=== PATIENT | male | born 1945 | race Caucasian/White ===

== ENCOUNTER → 2016-09-01 | Outpatient (CLI) | payer MEDICARE, OTHER ==
--- NOTE | 2016-09-01 15:39 | MRI ---
EXAM DESCRIPTION: Brain w/o Contrast CLINICAL HISTORY: SYNCOPE COMPARISON: None available TECHNIQUE: Non contrast MRI of the brain is performed according to our usual protocol including multiplanar multi sequence technique. FINDINGS: No hemorrhage, mass effect, diffusion restriction, or acute infarction is present. Mild generalized volume loss is present. Mild T2/FLAIR hyperintensities in the supratentorial white matter. No abnormal extra-axial fluid collections are present. Normal flow voids are present. The calvarium is intact. Mild mucosal thickening in both maxillary sinuses with a 1.5 cm left maxillary mucous retention cyst or polyp. Small left mastoid effusion. IMPRESSION: 1. No acute intracranial abnormality. 2. Mild chronic microangiopathy. Electronically signed by: Jorge Hernández MD 09/01/2016 3:37 PM CDT
== END | disposition home or self-care (01) ==
LOC: MRI 10:21
PROVIDERS: ATTEND Family Medicine
DX: R55 Syncope and collapse (principal)

== ENCOUNTER → 2016-09-08 | Outpatient (CLI) | payer MEDICARE, OTHER | END | disposition home or self-care (01) | LOC: GMAM 11:55 | PROVIDERS: ATTEND Family Medicine | DX: D64.9 Anemia, unspecified (principal); Z12.5 Encounter for screening for malignant neoplasm of prostate; R53.83 Other fatigue; E55.9 Vitamin D deficiency, unspecified | CPT/HCPCS: 82306; 82728; 83540; 83550; 84403; 84439; 84443; 84550; 85045; 85651; 86038; 86060; 86140; 86200; 86431; G0103 ==

== ENCOUNTER → 2016-12-08 | Outpatient (CLI) | payer MEDICARE, OTHER | LOC: GMAM 16:58 | PROVIDERS: ATTEND Family Medicine | DX: D50.8 Other iron deficiency anemias (principal) ==

== ENCOUNTER → 2017-01-05 | Outpatient (CLI) | payer MEDICARE, OTHER | END | disposition home or self-care (01) | LOC: GMAM 14:57 | PROVIDERS: ATTEND Family Medicine | DX: E29.9 Testicular dysfunction, unspecified (principal) ==

== ENCOUNTER → 2017-03-30 | Outpatient (CLI) | payer MEDICARE, OTHER | END | disposition home or self-care (01) | LOC: GMAM 15:02 | PROVIDERS: ATTEND Family Medicine | DX: E53.8 Deficiency of other specified B group vitamins (principal); D51.3 Other dietary vitamin B12 deficiency anemia; D52.9 Folate deficiency anemia, unspecified; D64.9 Anemia, unspecified; N39.0 Urinary tract infection, site not specified; E29.9 Testicular dysfunction, unspecified; I10 Essential (primary) hypertension; R31.21 Asymptomatic microscopic hematuria ==

== ENCOUNTER → 2017-07-03 | Outpatient (CLI) | payer MEDICARE, OTHER | LOC: GMAM 18:45 | PROVIDERS: ATTEND Family Medicine | DX: D64.9 Anemia, unspecified (principal) ==

== ENCOUNTER → 2017-08-16 | Outpatient (CLI) | payer MEDICARE, OTHER | LOC: GMAH 16:39 | PROVIDERS: ATTEND Nurse Practitioner Family | DX: N30.00 Acute cystitis without hematuria (principal) ==

== ENCOUNTER → 2017-09-20 | Outpatient (CLI) | payer MEDICARE, OTHER | LOC: GMAM 10:52 | PROVIDERS: ATTEND Family Medicine | DX: D51.3 Other dietary vitamin B12 deficiency anemia (principal); E55.9 Vitamin D deficiency, unspecified; E29.9 Testicular dysfunction, unspecified; I10 Essential (primary) hypertension; Z12.5 Encounter for screening for malignant neoplasm of prostate | CPT/HCPCS: 82306; 82607; 84403; G0103 ==

== ENCOUNTER → 2017-09-29 | Outpatient (CLI) | payer MEDICARE, OTHER ==
--- NOTE | 2017-09-29 15:17 | MRI ---
MRI right shoulder without contrast INDICATION: Shoulder pain with movement no specific injury unspecified date of onset TECHNIQUE: Noncontrast MR imaging right shoulder standard protocol FINDINGS: Mild subacromial and subdeltoid bursitis. Mild AC joint osteoarthrosis. There is a focal small interstitial and possibly bursal surface partial tear of the insertional supraspinatus with interstitial extension into the infraspinatus. These approaching 50% partial-thickness. There is also diffuse labral degeneration with fraying with mild volume loss in the superior and posterior superior labrum with minimal glenohumeral osteophyte formation. The long head bicep is intact. There is mild subscapularis tendinosis with interstitial low-grade partial tear without rupture or retraction. There is prominent fatty atrophy involving the upper teres minor. Mild grade 1 marbling the supraspinatus and subscapularis. Grade 2 changes infraspinatus. IMPRESSION: Rotator cuff tendinopathy with partial tears throughout the primary rotator cuff tendons without detachment or retraction approaching 50% partial-thickness Degenerative glenoid labrum especially superior and posterior superior Mild subacromial and subdeltoid bursitis Mild AC joint osteoarthrosis Multifocal muscle atrophy as above Electronically signed by: Jomra Horton MD 09/29/2017 3:15 PM CDT
== END ==
LOC: MRI 10:27
PROVIDERS: ATTEND Family Medicine
DX: M75.111 Incomplete rotator cuff tear or rupture of right shoulder, not specified as traumatic (principal); M75.51 Bursitis of right shoulder; M19.011 Primary osteoarthritis, right shoulder; M62.511 Muscle wasting and atrophy, not elsewhere classified, right shoulder

== ENCOUNTER → 2018-06-25 | Outpatient (CLI) | payer MEDICARE, OTHER | LOC: GMAM 15:01 | PROVIDERS: ATTEND Family Medicine | DX: E53.8 Deficiency of other specified B group vitamins (principal); E55.9 Vitamin D deficiency, unspecified; E29.9 Testicular dysfunction, unspecified; D75.1 Secondary polycythemia ==

== ENCOUNTER → 2018-06-28 | Outpatient (CLI) | payer MEDICARE, OTHER | LOC: LAB.O 12:10 | PROVIDERS: ATTEND Family Medicine | DX: D75.1 Secondary polycythemia (principal) ==

== ENCOUNTER 2018-10-31 05:23 | Day surgery (SDC) | payer MEDICARE, OTHER ==
--- NOTE | 2018-10-30 10:06 | HP ---
CHIEF COMPLAINT: Hip pain. HISTORY OF PRESENT ILLNESS: Ganesh is a 73-year-old male with a history of pain in the hip. He has had pain going on for quite some time and it has gotten progressively worse. He says that it does cause some difficulty with activities. Because of that, he has requested injection under anesthesia. After discussing the risks, benefits and alternatives to that, he has given informed consent. PAST SURGICAL HISTORY: 1. Appendectomy. 2. Stent placement. 3. Cataract removal. MEDICATIONS: 1. Metoprolol. 2. Atorvastatin. 3. Trazodone. 4. Pantoprazole. 5. Tylenol PM. 6. Potassium. ALLERGIES: NO KNOWN DRUG ALLERGIES. FAMILY HISTORY: None pertinent to today's complaint. SOCIAL HISTORY: The patient does not smoke or use any illicit drugs. He does drink on occasion. REVIEW OF SYSTEMS: Negative except as indicated in the History of Present Illness. PHYSICAL EXAMINATION: VITAL SIGNS: Blood pressure 170/102. Pulse 69. Height 5'11". Weight 244 pounds. MENTAL STATUS: The patient is awake, alert, and is able to give a good history and participate in the physical. The patient is oriented to person, place and time. SKIN: Normal tone and turgor. MUSCULOSKELETAL: He has pain with internal and external rotation of the hip, especially with internal rotation which is limited to about 10 to 15 degrees. He has a warm and well perfused extremity. Sensation is intact. Strength is 5/5. There is no malalignment and he is walking with a normal gait today. IMAGING: X-rays show some arthritic changes, but no acute bony abnormality. ASSESSMENT: 1. Arthritis. PLAN: The plan at this point is for intraarticular injection. We have discussed the risks, benefits, and alternatives to that and the patient has given informed consent. #[id number] [facility]TD[facility]
[2018-10-31] MEDS: LACTATED RINGERS 1,000 ML ONE (09:00)
[2018-10-31] MEDS ORDERED: METOPROLOL SUCCINATE XL 25 MG TAB PO ONE (09:19)
[2018-10-31] MEDS ORDERED: LIDOCAINE 1% 10 ML VIAL INJ ONE (10:00)
[2018-10-31] MEDS ORDERED: PROPOFOL 200 MG/20 ML VIAL IV ONE (10:00)
[2018-10-31] MEDS: LIDOCAINE 1% W/ EPINEPHRINE 20 ML VIAL INJ ONE (10:36)
[2018-10-31] MEDS: BUPIVACAINE 0.25% INJ 30 ML VIAL INJ ONE (10:36)
[2018-10-31] MEDS: methylPREDNISolone ACETATE 80 MG/ML VIAL ONE (10:36)
[2018-10-31 10:59] VITALS: TEMP 97.9
[2018-10-31 12:26] VITALS: BP 169/103; O2SAT 95
--- NOTE | 2018-11-01 10:18 | RAD ---
EXAM DESCRIPTION: Fluoroscopy Up to 1Hr CLINICAL HISTORY: INTRAARTICULAR INJECTION COMPARISON: None. TECHNIQUE: Fluoroscopy time is 11 seconds, 1 exposure. FINDINGS: Fluoroscopy was provided to direct the needle to the right femoral neck for intra-articular injection. IMPRESSION: Right hip injection Electronically signed by: Edy Nicole MD 11/01/2018 10:16 AM CDT
--- NOTE | 2018-11-09 08:33 | OP ---
DATE OF PROCEDURE: 10/31/18 PREOPERATIVE DIAGNOSIS: 1. Right hip osteoarthritis. POSTOPERATIVE DIAGNOSIS: 1. Right hip osteoarthritis. PROCEDURE: 1. Injection of right hip. SURGEON: Bob Ledesma MD. DETAILER: Harshad Banerjee CST, SA-C. ANESTHESIA: Conscious sedation. COMPLICATIONS: None. FINDINGS: Osteoarthritis of the hip. INDICATION: Mr. Clemons has a long history of knee pain that has been refractory to conservative measures. Because of the refractory nature of the pain, he has requested injection. After discussing the risks, benefits and alternatives to operative therapy, the patient has given informed consent for that. PROCEDURE: The patient was brought to the Operating Room and placed in supine position. Conscious sedation was administered and the leg was flexed, abducted and externally rotated. The groin was prepped and fluoroscopic imaging was used to confirm needle placement into the hip joint through a medial portal. Once placement had been confirmed, a combination of lidocaine and Depo-Medrol were injected into the joint. After injection, the needle was withdrawn. Pressure was held on the injection site. A sterile band-aid was placed. The patient was then taken back to the Day Surgery Unit. POSTOPERATIVE PLAN: The patient will be weight-bearing as tolerated. The patient will followup with us in 2 weeks. #[id number] [facility]
== END 2018-10-31 12:10 | disposition home or self-care (01) ==
LOC: AMB 05:23
PROVIDERS: ATTEND Orthopaedic Surgery
DX: M16.11 Unilateral primary osteoarthritis, right hip (principal); Z95.5 Presence of coronary angioplasty implant and graft; Z79.899 Other long term (current) drug therapy
CPT/HCPCS: 01200; 20610; 76000; 80307; 87070; J1030; J3490; J7120

== ENCOUNTER → 2018-12-18 | Outpatient (CLI) | payer MEDICARE, OTHER ==
--- NOTE | 2018-12-19 08:09 | MRI ---
EXAM DESCRIPTION: Shoulder,Left CLINICAL HISTORY: 73 years, Male, ROTATOR CUFF SYNDROME COMPARISON: Left shoulder radiograph 11/15/2018. TECHNIQUE: MRI of the left shoulder was performed with multiplanar multi sequence imaging without intravenous contrast. FINDINGS: Rotator tendons: Mild supraspinatus, infraspinatus, subscapularis tendinosis. There is partial-thickness concealed interstitial tearing at the supraspinatus footplate and infraspinatus partial-thickness bursal surface fraying. No full-thickness rotator cuff tear or tendon retraction is seen. The teres minor tendons are intact. Rotator muscles: Mild fatty atrophy of the infraspinatus myotendinous junction. Moderate fatty atrophy of the teres minor muscle. Glenoid labrum: There is degenerative fraying of the labrum. Acromion: The acromion morphology is type two . Bone and joints: No focal bone marrow contusion or fracture. No thickness cartilage defect. Mild right acromioclavicular joint osteoarthrosis with mild capsular hypertrophy. Biceps tendon: Normal course and morphology of the biceps tendon long head within the bicipital groove. The biceps labral anchor appears intact. Moderate amount of fluid distends the biceps tendon sheath consistent with bicipital tenosynovitis. Soft tissues: No solid or cystic mass is seen. The quadrilateral space and fat is unremarkable. IMPRESSION: 1. Mild rotator cuff tendinosis with mild partial-thickness tears of the supraspinatus and infraspinatus tendons. No full-thickness rotator cuff tear or tendon retraction. 2. Asymmetric fatty atrophy of the teres minor muscle. 3. Proximal biceps long head tenosynovitis. 4. Mild degenerative tearing of the glenoid labrum. 5. Mild acromioclavicular joint osteoarthrosis. Electronically signed by: Corwin Larose DO 12/19/2018 8:07 AM CDT
== END ==
LOC: MRI 14:00
PROVIDERS: ATTEND Orthopaedic Surgery
DX: M75.102 Unspecified rotator cuff tear or rupture of left shoulder, not specified as traumatic (principal); M75.82 Other shoulder lesions, left shoulder; M75.22 Bicipital tendinitis, left shoulder; M19.012 Primary osteoarthritis, left shoulder

== ENCOUNTER → 2018-12-19 | Outpatient (CLI) | payer MEDICARE, OTHER ==
--- NOTE | 2018-12-19 15:27 | MRI ---
EXAM DESCRIPTION: Shoulder,Right CLINICAL HISTORY: 73 years, Male, ROTATOR CUFF TEAR OR RUPTURE OF RIGHT SHOULDER COMPARISON: Right shoulder radiograph 2019. TECHNIQUE: MRI of the right shoulder was performed with multiplanar multi sequence imaging without intravenous contrast. FINDINGS: Rotator tendons: Moderate supraspinatus tendinosis. Mild infraspinatus and subscapularis tendinosis. Partial-thickness articular surface tears of the supraspinatus. Partial-thickness bursal surface tears of the infraspinatus tendon. The teres minor and subscapularis tendons are intact. No full-thickness rotator cuff tear or tendon retraction. Rotator muscles: There is partial fatty atrophy of the teres minor muscle. The remainder of the rotator cuff muscle is intact with normal muscle volume. Glenoid labrum: Mild circumferential degenerative fraying of the glenoid. Glenohumeral ligaments: Mild thickening of the inferior glenohumeral ligament/axillary pouch, nonspecific. Acromion: The acromion morphology is type one. Bone and joints: No focal bone marrow contusion or fracture. Moderate right glenohumeral joint osteoarthrosis with mild diffuse articular cartilage thinning. Mild right acromioclavicular joint osteoarthrosis with mild capsular hypertrophy. Biceps tendon: Normal course and morphology of the biceps tendon long head within the bicipital groove. Mild tendinosis of the intra-articular portion of the biceps tendon. The biceps labral anchor appears intact. Mild fluid distention of the biceps tendon sheath within the bicipital groove. Soft tissues: No solid or cystic mass is seen. IMPRESSION: 1. Background rotator cuff tendinosis. Supraspinatus and infraspinatus tendon partial-thickness tears without focal full-thickness rotator cuff tear or tendon retraction. 2. Moderate right glenohumeral joint osteoarthrosis. 3. Mild right acromioclavicular joint osteoarthrosis with mild subacromial/subdeltoid bursitis. 4. Mild proximal biceps long head tenosynovitis. Electronically signed by: Corwin Larose DO 12/19/2018 3:25 PM CDT
== END ==
LOC: MRI 14:00
PROVIDERS: ATTEND Orthopaedic Surgery
DX: M75.101 Unspecified rotator cuff tear or rupture of right shoulder, not specified as traumatic (principal); M75.81 Other shoulder lesions, right shoulder; M19.011 Primary osteoarthritis, right shoulder; M75.21 Bicipital tendinitis, right shoulder

== ENCOUNTER → 2019-01-03 | Outpatient (CLI) | payer MEDICARE, OTHER | LOC: GMAM 10:36 | PROVIDERS: ATTEND Family Medicine | DX: E53.8 Deficiency of other specified B group vitamins (principal); D75.1 Secondary polycythemia; E29.9 Testicular dysfunction, unspecified; R53.83 Other fatigue; E55.9 Vitamin D deficiency, unspecified; I10 Essential (primary) hypertension; R73.9 Hyperglycemia, unspecified; Z12.5 Encounter for screening for malignant neoplasm of prostate | CPT/HCPCS: 82306; 82607; 84403; 84443; 99195; G0103 ==

== ENCOUNTER → 2019-02-11 | Outpatient (CLI) | payer MEDICARE, OTHER | LOC: LAB.O 15:14 | PROVIDERS: ATTEND Family Medicine | DX: R71.8 Other abnormality of red blood cells (principal); I10 Essential (primary) hypertension ==

== ENCOUNTER → 2019-07-16 | Outpatient (CLI) | payer MEDICARE, OTHER | LOC: GMAM 14:16 | PROVIDERS: ATTEND Family Medicine | DX: E53.8 Deficiency of other specified B group vitamins (principal); E55.9 Vitamin D deficiency, unspecified; I10 Essential (primary) hypertension; E29.9 Testicular dysfunction, unspecified ==

== ENCOUNTER → 2019-07-17 | Outpatient (CLI) | payer MEDICARE, OTHER | LOC: GMAM 14:13 | PROVIDERS: ATTEND Family Medicine | DX: R53.83 Other fatigue (principal) ==

== ENCOUNTER → 2020-02-18 | Outpatient (CLI) | payer MEDICARE, OTHER | LOC: GMAM 11:12 | PROVIDERS: ATTEND Family Medicine | DX: Z12.5 Encounter for screening for malignant neoplasm of prostate (principal); E55.9 Vitamin D deficiency, unspecified; E29.9 Testicular dysfunction, unspecified; I10 Essential (primary) hypertension | CPT/HCPCS: 82306; 84403; G0103 ==